=== PATIENT | female | born 1960 | race Caucasian/White ===

== ENCOUNTER 2023-04-04 19:27 | Outpatient (REF) | payer OTHER, SELFPAY ==
[2023-04-04 15:32] LABS: Calculated LDL 138 mg/dL (<100); Cholesterol 215 mg/dL (<200); HDL Cholesterol 62 mg/dL (40-60); TSH 1.12 uIU/mL (0.36-3.74); Triglyceride 77 mg/dL (<150)
[2023-04-04 15:48] LABS: Vitamin D 25 Total 42.8 ng/mL (30-100)
[2023-04-04 15:56] LABS: FREE T4 0.73 ng/dL (0.76-1.46)
[2023-04-04 22:24] LABS: T3,Free 4.3 pg/mL (2.8-5.3)
== END 2023-04-04 19:28 | disposition home or self-care (01) ==
LOC: NCHCN 19:27
PROVIDERS: PCP Family Medicine; Visit Provider Nurse Practitioner Family
DX: E78.5 Hyperlipidemia, unspecified (principal); R51.9 Headache, unspecified; B00.1 Herpesviral vesicular dermatitis; F43.21 Adjustment disorder with depressed mood; F39 Unspecified mood [affective] disorder; M85.80 Other specified disorders of bone density and structure, unspecified site; G47.00 Insomnia, unspecified; I67.1 Cerebral aneurysm, nonruptured
CPT/HCPCS: 80061; 82306; 84439; 84443; 84481